=== PATIENT | female | born 1985 | race Caucasian/White ===

== ENCOUNTER 2017-11-07 14:19 | Emergency (ER) | payer MEDICAID | END 2017-11-07 17:21 | disposition home or self-care (01) | LOC: D.ER 14:19 | DX: F41.9 Anxiety disorder, unspecified (principal) ==

== ENCOUNTER 2020-05-21 06:27 | Emergency (ER) | payer MEDICAID ==
[~2020-05-21] VITALS: Ht 162.6 cm; Wt 100.0 kg
[2020-05-21 06:34] VITALS: BP 132/93; Ht 162.6 cm; Wt 100.0 kg
[2020-05-21] MEDS ORDERED: KLONOPIN1 MG PO (06:37)
[2020-05-21] MEDS ORDERED: OMEPRAZOLE20 M1 PO (06:37)
[2020-05-21] MEDS ORDERED: MIRAPEX0.25 MG PO (06:37)
[2020-05-21] MEDS ORDERED: LAMICTAL PO (06:37)
[2020-05-21] MEDS ORDERED: LITHIUM PO (06:38)
[2020-05-21] MEDS ORDERED: IMIPRAMINE PO (06:38)
[2020-05-21 07:20] LABS: ANION GAP 7.9 mmol/L (8-16); BASOPHILS 0.3 % (0-2); CALCIUM 9.1 mg/dL (8.5-10.1); CARBON DIOXIDE 27.1 mmol/L (21.0-32.0); CREATININE - SERUM 1.1 mg/dL (0.6-1.3); HEMATOCRIT 40.4 % (36.0-48.0); HEMOGLOBIN 13.4 g/dL (12-16); IMMATURE GRANULOCYTES 0.4 % (0-5); LYMPHOCYTES 20.7 % (15-50); MCH 29.6 pg (26.0-34.0); MCHC 33.2 g/dL (31.0-37.0); MCV 89.2 fL (80.0-100.0); MEAN PLATELET VOLUME 10.1 fL (7.4-10.4); MONOCYTES 4.6 % (2-11); PLATELET COUNT 341 10x3/uL (130-400); RBC 4.53 10x6/uL (4.00-5.40); RDW 15.2 % (11.5-14.5); WBC 11.2 10x3/uL (4.8-10.8)
[2020-05-21 07:26] LABS: BILIRUBIN - TOTAL 0.18 mg/dL (0.2-1.3); PROTEIN - SERUM 7.7 g/dL (6.4-8.2)
[2020-05-21 07:44] LABS: LITHIUM 0.78 mmol/L (0.60-1.20); SALICYLATES 4.6 mg/dL (2.8-20.0)
[2020-05-21 07:46] LABS: UDS - AMPHET NEGATIVE QUAL (NEGATIVE); UDS - BARB NEGATIVE QUAL (NEGATIVE); UDS - BENZO NEGATIVE QUAL (NEGATIVE); UDS - COCAINE NEGATIVE QUAL (NEGATIVE); UDS - OPIATE NEGATIVE QUAL (NEGATIVE); UDS - PCP NEGATIVE QUAL (NEGATIVE); UDS - THC NEGATIVE QUAL (NEGATIVE)
--- NOTE | 2020-05-21 07:49 | NUR ---
DR FLEMING NOTIFIED AND REVIEWED PT'S BEHAVIOR AND ASSESSMENT. PT IS A HIGH RISK. SITTER ORDERED AND AT BEDSDIE. SAFETY PLAN INITIATED. RESOURCES GIVEN AND SHE VERBALIZES UNDERSTANDING.
[2020-05-21 08:02] LABS: BILIRUBIN NEGATIVE (NEGATIVE); KETONE NEGATIVE (NEGATIVE); NITRITE NEGATIVE (NEGATIVE); UROBILINOGEN NORMAL (NORMAL)
[2020-05-21 08:03] LABS: BACTERIA FEW /hpf (NEGATIVE); EPITHELIAL CELLS OCC /hpf (0-5); RED CELLS - URINE RARE /hpf (0-5); WHITE CELLS - URINE 0-5 /hpf (NEGATIVE)
== END 2020-05-21 14:55 ==
LOC: D.ER 06:27
PROVIDERS: Family Medicine
DX: R45.851 Suicidal ideations (principal); F31.9 Bipolar disorder, unspecified